=== PATIENT | male | born 1990 | race Caucasian/White ===

== ENCOUNTER 2016-11-07 15:57 | Emergency (ER) | payer OTHER ==
[2016-11-07 16:55] VITALS: BP 152/82
[2016-11-07] MEDS ORDERED: Ibuprofen TAB* 600 MG PO ONE (17:45)
[2016-11-07] MEDS ORDERED: Tetan/Diph/Pertus SYR(Tdap)* 0.5 ML SYR(BOOSTRIX) use SYR IM ONE (17:45)
[2016-11-07] MEDS ORDERED: Cephalexin CAP* 500 MG PO ONE (17:45)
--- NOTE | 2016-11-07 17:50 | UC ---
Elbow Pain - HPI Summary HPI Summary: 26 YO MALE WAS ESCORTING KID AT WORK AND HAD HIS LEGS SWEPT OUT FROM UNDER HIM LANDED ON LEFT ELBOW DEEP ABRASION UNSURE OF LAST TD RIGHT HANDED HX OF LEFT ELBOW FX - History of Current Complaint Chief Complaint: UCUpperExtremity Stated Complaint: LEFT ELBOW INJURY Time Seen by Provider: 11/07/16 17:19 Hx Obtained From: Patient Onset/Duration: Hours Severity Initially: Moderate Severity Currently: Moderate Pain Intensity: 6 Pain Scale Used: 0-10 Numeric Location Of Pain: Is Diffuse Character: Aching, Throbbing Aggravating Factor(s): Movement Alleviating Factor(s): Rest Associated Signs And Symptoms: Positive: Swelling - Allergies/Home Medications Allergies/Adverse Reactions: Allergies Allergy/AdvReac Type Severity Reaction Status Date / Time Codeine Allergy Mild Itching Verified 11/07/16 16:48 PMH/Surg Hx/FS Hx/Imm Hx Previously Healthy: Yes Endocrine History Of: Denies: Diabetes, Thyroid Disease Cardiovascular History Of: Denies: Cardiac Disorders, Hypertension Respiratory History Of: Denies: COPD, Asthma GI/ History Of: Denies: Ulcer - Surgical History Surgical History: Yes Surgery Procedure, Year, and Place: EAR TUBES. ADENOIDECTOMY - Family History Known Family History: Positive: Hypertension - Social History Alcohol Use: Occasionally Substance Use Type: None Smoking Status (MU): Light Every Day Tobacco Smoker Type: Cigarettes Amount Used/How Often: 1 /3 PPD Length of Time of Smoking/Using Tobacco: 7 YRS Have You Smoked in the Last Year: Yes Review of Systems Constitutional: Negative Skin: Negative Eyes: Negative ENT: Negative Respiratory: Negative Cardiovascular: Negative Gastrointestinal: Negative Genitourinary: Negative Motor: Negative Neurovascular: Negative Musculoskeletal: Arthralgia Neurological: Negative Psychological: Negative All Other Systems Reviewed And Are Negative: Yes Physical Exam Triage Information Reviewed: Yes Appearance: Well-Appearing, No Pain Distress, Well-Nourished Vital Signs: Initial Vital Signs Temp 99.1 F 11/07/16 16:49 Pulse 70 11/07/16 16:49 Resp 16 11/07/16 16:49 BP 152/82 11/07/16 16:49 Pulse Ox 99 11/07/16 16:49 Vital Signs Reviewed: Yes Eyes: Positive: Conjunctiva Clear ENT: Positive: Hearing grossly normal. Negative: Nasal congestion, Nasal drainage, Trismus, Muffled/hoarse voice Dental: Negative: Dental Fracture @, Abscess @ Neck: Positive: Supple, Nontender Respiratory: Positive: Lungs clear, Normal breath sounds, No respiratory distress, No accessory muscle use Cardiovascular: Positive: RRR, No Murmur. Negative: Tachycardia, Bradycardia Musculoskeletal: Positive: ROM Limited @ - LEFT ELBOW PAINFUL WITH FULL FLEXION AND FULL EXTENSION Neurological: Positive: Alert Psychological Exam: Normal Skin Exam: Other - DEEP ABRAISON LEFT ELBOW Elbow Pain Course/Dx - Differential Dx/Diagnosis Provider Diagnoses: left elbow contusion/abrasion Discharge - Discharge Plan Condition: Stable Disposition: HOME Referrals: No Primary Care Phys,NOPCP [Primary Care Provider] -
--- NOTE | 2016-11-07 18:09 | RAD ---
HISTORY: Injury, tender olecranon, left elbow COMPARISONS: March 25, 2014, March 15, 2014 VIEWS: 4, Frontal, lateral, and oblique views of the left elbow FINDINGS: BONE DENSITY: Normal. BONES: There is no displaced fracture. The radial head fracture noted on previous examinations is no longer evident. JOINTS: There is no arthropathy. There is no posterior supracondylar fat pad to suggest a joint effusion. ALIGNMENT: There is no dislocation. SOFT TISSUES: Unremarkable. OTHER FINDINGS: None. IMPRESSION: NO ACUTE OSSEOUS INJURY. IF SYMPTOMS PERSIST, RECOMMEND REPEAT IMAGING.
== END 2016-11-07 18:36 | disposition home or self-care (01) ==
LOC: UCCORT 15:57
DX: S50.312A Abrasion of left elbow, initial encounter (principal); F17.210 Nicotine dependence, cigarettes, uncomplicated; Z87.81 Personal history of (healed) traumatic fracture; X58.XXXA Exposure to other specified factors, initial encounter; Y93.F9 Activity, other caregiving; Y92.9 Unspecified place or not applicable; Y99.0 Civilian activity done for income or pay; Z88.5 Allergy status to narcotic agent
CPT/HCPCS: 90715; 96372; 99213; A9270-GY; G0463

== ENCOUNTER 2017-08-01 16:41 | Emergency (ER) | payer OTHER ==
[2017-08-01 17:04] VITALS: BP 138/73
--- NOTE | 2017-08-01 18:21 | UC ---
Bite Injury/Animal HPI - HPI Summary HPI Summary: 11 AM, HUMAN BITE TO RIGHT FOREARM FROM RESIDENT AT [facility]. TEETH BROKE SKIN BLEEDING CONTROLLED AT TIME OF VISIT. SOURCE AVAILABLE FOR TESTING AT [facility] , WITH MEDICAL RECORDS. PATIENT WILL CALL MEDICAL STAFF AT [facility]. LAST TETANUS 10/2016 - History of Current Complaint Chief Complaint: UCLaceration Stated Complaint: RIGHT FOREARM BITE (WC) Time Seen by Provider: 08/01/17 16:45 Hx Obtained From: Patient Pain Intensity: 0 Pain Scale Used: 0-10 Numeric Onset/Duration: Sudden Onset, Lasting Hours Type of Bite: Human Hx of Bite: Provoked by: - ALTERCATION Animal Available for Observation: Yes - Allergies/Home Medications Allergies/Adverse Reactions: Allergies Allergy/AdvReac Type Severity Reaction Status Date / Time Codeine Allergy Mild Itching Verified 08/01/17 17:04 PMH/Surg Hx/FS Hx/Imm Hx Previously Healthy: Yes - Surgical History Surgical History: Yes Surgery Procedure, Year, and Place: EAR TUBES. ADENOIDECTOMY - Family History Known Family History: Positive: Hypertension - Social History Occupation: Employed Full-time Lives: With Family Alcohol Use: Occasionally Substance Use Type: None Smoking Status (MU): Heavy Every Day Tobacco Smoker Type: Cigarettes Amount Used/How Often: 1 /2 PPD Length of Time of Smoking/Using Tobacco: 7 YRS Have You Smoked in the Last Year: Yes Cessation Counseling: Patient Advised to Stop - Immunization History Most Recent Tetanus Shot: Review of Systems Constitutional: Negative Skin: Other - ABRASION RIGHT DORSAL MID-FOREARM Eyes: Negative ENT: Negative Respiratory: Negative Cardiovascular: Negative Gastrointestinal: Negative Genitourinary: Negative Motor: Negative Neurovascular: Negative Musculoskeletal: Negative Neurological: Negative Psychological: Negative Is Patient Immunocompromised?: No All Other Systems Reviewed And Are Negative: Yes Physical Exam Triage Information Reviewed: Yes Appearance: Well-Appearing, No Pain Distress, Well-Nourished Vital Signs: Initial Vital Signs Temp 98.3 F 08/01/17 16:58 Pulse 81 08/01/17 16:58 Resp 18 08/01/17 16:58 BP 138/73 08/01/17 16:58 Vital Signs Reviewed: Yes Eye Exam: Normal ENT Exam: Normal Dental Exam: Normal Neck exam: Normal Neck: Positive: Supple, Nontender, No Lymphadenopathy Respiratory Exam: Normal Respiratory: Positive: Chest non-tender, Lungs clear, Normal breath sounds, No respiratory distress, No accessory muscle use Cardiovascular Exam: Normal Cardiovascular: Positive: RRR, No Murmur, Pulses Normal Abdominal Exam: Normal Musculoskeletal Exam: Normal Musculoskeletal: Positive: Strength Intact Neurological Exam: Normal Psychological Exam: Normal Skin: Positive: Other - ABRASION RIGHT DORSAL MID-FOREARM Bite Injury Course/Dx - Differential Dx/Diagnosis Differential Diagnosis/HQI/PQRI: Hepatitis B Exposure, HIV Exposure, Superficial Infection Provider Diagnoses: HUMAN BITE WITH ABRASIONS RIGHT DORSAL MID-FOREARM Discharge - Discharge Plan Condition: Stable Disposition: HOME Prescriptions: Amoxicillin/Clavulanate TAB* [Augmentin TAB 875*] 875 mg PO BID #20 tab Patient Education Materials: Human Bite (ED) Referrals: [facility]YSICIAN REFERRAL [Outside] No Primary Care Phys,NOPCP [Primary Care Provider] -
[2017-08-01 21:14] LABS: Rapid HIV INT CONT QC Line Present; Rapid HIV Kit Lot# H017003
== END 2017-08-01 17:55 | disposition home or self-care (01) ==
LOC: UCCORT 16:41
DX: S51.851A Open bite of right forearm, initial encounter (principal); Z88.6 Allergy status to analgesic agent; F17.210 Nicotine dependence, cigarettes, uncomplicated; W50.3XXA Accidental bite by another person, initial encounter; Y92.9 Unspecified place or not applicable; S50.811A Abrasion of right forearm, initial encounter
CPT/HCPCS: 36415; 86703; 86706; 86803; 99212; G0463

== ENCOUNTER 2018-06-20 15:38 | Emergency (ER) | payer OTHER ==
[2018-06-20 16:20] VITALS: BP 147/81
[2018-06-20] MEDS ORDERED: Lidocaine 1%* 5 ML VIAL INJ ONE (17:26)
--- NOTE | 2018-06-20 17:39 | RAD ---
HISTORY: fall from standing, has laceration COMPARISONS: None VIEWS: 4 , Frontal, lateral, and oblique views of the right elbow FINDINGS: BONE DENSITY: Normal. BONES: There is no displaced fracture. JOINTS: There is no arthropathy. ALIGNMENT: There is no dislocation. SOFT TISSUES: Unremarkable. OTHER FINDINGS: None. IMPRESSION: WHILE THERE IS NO DISPLACED FRACTURE, THE PRESENCE OF JOINT EFFUSION AND HISTORY OF TRAUMA SUGGESTS OCCULT FRACTURE. RECOMMEND ATTENTION ON FOLLOW-UP IMAGING.
--- NOTE | 2018-06-20 18:11 | UC ---
Elbow Pain - HPI Summary HPI Summary: Pt presents with c/o right elbow pain and laceration to right elbow. Pt was at work and was "taking down" astudent and fell with right elbow flexed and now has right elbow pain and laceration - History of Current Complaint Chief Complaint: UCLaceration Stated Complaint: WC-RIGHT ELBOW INJURY Time Seen by Provider: 06/20/18 17:13 Hx Obtained From: Patient Onset/Duration: Hours Severity Initially: Moderate Severity Currently: Mild Pain Intensity: 5 Location Of Pain: Is Discrete @ - right elbow Character: Dull, Aching Aggravating Factor(s): Movement Alleviating Factor(s): Rest Associated Signs And Symptoms: Positive: Negative - Allergies/Home Medications Allergies/Adverse Reactions: Allergies Allergy/AdvReac Type Severity Reaction Status Date / Time codeine Allergy Intermediate Itching Verified 06/20/18 16:21 PMH/Surg Hx/FS Hx/Imm Hx Previously Healthy: Yes - Surgical History Surgical History: Yes Surgery Procedure, Year, and Place: EAR TUBES. ADENOIDECTOMY - Family History Known Family History: Positive: Hypertension - Social History Occupation: Employed Full-time Lives: With Family Alcohol Use: Occasionally Substance Use Type: None Smoking Status (MU): Heavy Every Day Tobacco Smoker Type: Cigarettes Amount Used/How Often: 1 /2 PPD Length of Time of Smoking/Using Tobacco: 7 YRS Have You Smoked in the Last Year: Yes - Immunization History Most Recent Tetanus Shot: 2015- Vaccination Up to Date: Yes Review of Systems Constitutional: Negative Skin: Other - laceration right elbow Eyes: Negative ENT: Negative Respiratory: Negative Cardiovascular: Negative Gastrointestinal: Negative Genitourinary: Negative Motor: Other - pain with ROM right elbow Neurovascular: Negative Musculoskeletal: Arthralgia, Myalgia Neurological: Negative Psychological: Negative Is Patient Immunocompromised?: No All Other Systems Reviewed And Are Negative: Yes Physical Exam Triage Information Reviewed: Yes Appearance: Well-Appearing Vital Signs: Initial Vital Signs Temp 98.7 F 06/20/18 16:13 Pulse 80 06/20/18 16:13 Resp 20 06/20/18 16:13 BP 147/81 06/20/18 16:13 Pulse Ox 100 06/20/18 16:13 Vital Signs Reviewed: Yes Eye Exam: Normal ENT: Positive: Hearing grossly normal Dental Exam: Normal Neck exam: Normal Respiratory Exam: Normal Respiratory: Positive: No respiratory distress Musculoskeletal Exam: Other Musculoskeletal: Positive: Other: - pain with ROM right elbow Neurological Exam: Normal Psychological Exam: Normal Skin Exam: Other - laceration right elbow Procedures - Laceration/Wound Repair 1 Description: Linear Anesthesia: 1.0% Betadine Prep?: Yes Laceration/Wound Explored: clean Suture Type: Prolene - 4-0, Number of Sutures: 1 - I phoned Dr. Pittman to consult about xray report, Dr. Pittman recommended that i place 1 suture, bandage wound and have pt f/u with her on 06/23/18. Pt was given rocephin and placed in sling as well. Diagnostics - Radiology No standard instances Radiology Interpretation Completed By: Radiologist - IMPRESSION: WHILE THERE IS NO DISPLACED FRACTURE, THE PRESENCE OF JOINT EFFUSION AND HISTORY OF TRAUMA SUGGESTS OCCULT FRACTURE. RECOMMEND ATTENTION ON FOLLOW-UP IMAGING Elbow Pain Course/Dx - Course Course Of Treatment: Pt was instructed to follow up with Dr. Pittman on Saturday, change dressing daily or if soiled more frequently. - Differential Dx/Diagnosis Differential Diagnosis/HQI/PQRI: Fracture (Open) Provider Diagnoses: possible right elbow open fracture. right elbow laceration repair with 1 suture (per Dr. Pittman directions) Discharge - Sign-Out/Discharge Documenting (check all that apply): Patient Departure All imaging exams completed and their final reports reviewed: No Studies - Discharge Plan Condition: Stable Disposition: HOME Patient Education Materials: Care For Your Stitches (ED), Laceration (ED), Elbow Fracture (ED) Referrals: No Primary Care Phys,NOPCP [Primary Care Provider] - Lucy Pittman MD [Medical Doctor] - 06/23/18 Additional Instructions: Please follow up with Dr. Pittman on Saturday06/23/18. Please note, if you have any worsening of pain in your elbow, fever, chills, or drainage please go directly to the emergency room. - Billing Disposition and Condition Condition: STABLE Disposition: Home
[2018-06-20] MEDS ORDERED: cefTRIAXone VIAL(*) 1,000 MG VIAL IM ONE (18:14)
[2018-06-20] MEDS ORDERED: Lidocaine 1% MPF* 2 ML VIAL ONE (18:28)
[2018-06-20] MEDS: cefTRIAXone VIAL(*) 1,000 MG VIAL IM ONE (18:36)
== END 2018-06-20 19:08 | disposition home or self-care (01) ==
LOC: UCCORT 15:38
DX: M25.421 Effusion, right elbow (principal); S51.011A Laceration without foreign body of right elbow, initial encounter; W19.XXXA Unspecified fall, initial encounter; Y93.89 Activity, other specified; Y92.219 Unspecified school as the place of occurrence of the external cause; Y99.0 Civilian activity done for income or pay; F17.210 Nicotine dependence, cigarettes, uncomplicated; Z88.5 Allergy status to narcotic agent
CPT/HCPCS: 12001; 96372; 99212; G0463; J0696

== ENCOUNTER 2019-02-19 14:29 | Emergency (ER) | payer OTHER ==
[2019-02-19 15:07] VITALS: BP 147/76
--- NOTE | 2019-02-19 15:55 | UC ---
Laceration HPI - HPI Summary HPI Summary: Pt presents with c/o laceration to left side of forehead that occurred today at ~ 1335. Pt was opening metal door when another person on other side kicked it open and hit pt in forehead. Pt is UTD with tetanus, 2017. Pt denies LOC, STRAUSS, nausea or vomiting. - History Of Current Complaint Chief Complaint: UCLaceration Stated Complaint: FOREHEAD LACERATION Time Seen by Provider: 02/19/19 15:23 Hx Obtained From: Patient Laceration Location: Head - forehead, left side Mechanism Of Injury: Blunt Trauma Onset/Duration: Sudden Onset Severity: Mild Pain Intensity: 3 Aggravating Factors: Nothing Related History: Occupational Injury - Allergies/Home Medications Allergies/Adverse Reactions: Allergies Allergy/AdvReac Type Severity Reaction Status Date / Time codeine Allergy Intermediate Itching Verified 02/19/19 15:07 PMH/Surg Hx/FS Hx/Imm Hx Previously Healthy: Yes - Surgical History Surgical History: Yes Surgery Procedure, Year, and Place: EAR TUBES. ADENOIDECTOMY - Family History Known Family History: Positive: Hypertension - Social History Occupation: Employed Full-time Lives: With Family Alcohol Use: Occasionally Substance Use Type: None Smoking Status (MU): Current Some Day Smoker Type: Cigarettes Amount Used/How Often: 1 /2 PPD Length of Time of Smoking/Using Tobacco: 7 YRS Have You Smoked in the Last Year: Yes - Immunization History Most Recent Tetanus Shot: 2016- Vaccination Up to Date: Yes Review of Systems All Other Systems Reviewed And Are Negative: Yes Constitutional: Positive: Negative Skin: Positive: Other - laceration to forehead Eyes: Positive: Negative ENT: Positive: Negative Respiratory: Positive: Negative Cardiovascular: Positive: Negative Gastrointestinal: Positive: Negative Genitourinary: Positive: Negative Motor: Positive: Negative Neurovascular: Positive: Negative Musculoskeletal: Positive: Negative Neurological: Positive: Negative Psychological: Positive: Negative Is Patient Immunocompromised?: No Physical Exam Triage Information Reviewed: Yes Appearance: Well-Appearing Vital Signs: Initial Vital Signs Temp 98.3 F 02/19/19 15:04 Pulse 66 02/19/19 15:04 Resp 16 02/19/19 15:04 BP 147/76 02/19/19 15:04 Pulse Ox 100 02/19/19 15:04 Vital Signs Reviewed: Yes Eye Exam: Normal ENT Exam: Normal Dental Exam: Normal Neck exam: Normal Respiratory Exam: Normal Respiratory: Positive: No respiratory distress Musculoskeletal Exam: Normal Neurological Exam: Normal Psychological Exam: Normal Skin Exam: Other - laceration left side of forehead. ~ 1.5 cm length, Laceration Repair - Laceration Repair 1 Description: Linear Laceration Size After Repair: Length (cm) - 1.5, Width (mm) - 3, Depth (mm) - 2 Modified For Repair: No Irrigation With Pressure Irrigation Device: Yes Closure Material: Ji - 3 ji placed Closure Method: Single Layer Suture Of: Skin Laceration Course/Dx - Differential Dx - Laceration/Wound Differental Diagnoses: Laceration - Diagnosis Provider Diagnosis: Laceration of forehead without complication Discharge - Sign-Out/Discharge Documenting (check all that apply): Patient Departure All imaging exams completed and their final reports reviewed: No Studies - Discharge Plan Condition: Stable Disposition: HOME Patient Education Materials: Staple Care (ED) Referrals: [facility] [place] PHYSICIAN REFERRAL [Outside] - If Needed No Primary Care Phys,NOPCP [Primary Care Provider] - Additional Instructions: Please return in to have ji removed in 7-10 days. - Billing Disposition and Condition Condition: STABLE Disposition: Home
== END 2019-02-19 16:08 | disposition home or self-care (01) ==
LOC: UCCORT 14:29
DX: S01.81XA Laceration without foreign body of other part of head, initial encounter (principal); W22.8XXA Striking against or struck by other objects, initial encounter; F17.210 Nicotine dependence, cigarettes, uncomplicated
CPT/HCPCS: 12001; 99211; G0463